=== PATIENT | female | born 1985 | race Caucasian/White ===

== ENCOUNTER 2021-09-30 11:20 | Outpatient (CLI) | payer OTHER, SELFPAY ==
--- NOTE | 2021-09-30 11:31 | ECG_ITS ---
Measurements Intervals [place] Rate: 72 P: 17 AL: 142 QRS: 0 QRSD: 93 T: 8 QT: 371 QTc: 408 Interpretive Statements SINUS RHYTHM DELAYED RS TRANSITION OTHERWISE WITHIN NORMAL LIMITS NO PREVIOUS ECG AVAILABLE FOR COMPARISON Electronically Signed On 09-30-2021 12:07:24 CDT by Cristopher Denis M.D.
[2021-09-30 12:08] LABS: Hematocrit 40.4 % (37.0-47.0); Hemoglobin 13.5 g/dL (12.0-15.0)
[2021-09-30 12:17] LABS: Anion Gap 11 mmol/L (8-16); Blood Urea Nitrogen 13 mg/dL (7-17); Calcium 9.2 mg/dL (8.4-10.2); Carbon Dioxide 25 mmol/L (22-30); Chloride 95 mmol/L (98-107); Estimated Glomerular Filt Rate > 60; Glucose 95 mg/dL (65-110); Potassium 4.5 mmol/L (3.4-5.0); Sodium 131 mmol/L (137-145)
== END 2021-09-30 11:21 | disposition home or self-care (01) ==
LOC: ANHSURGERY 11:25
PROVIDERS: Anesthesiology; Visit Provider Obstetrics & Gynecology Gynecology
DX: N83.8 Other noninflammatory disorders of ovary, fallopian tube and broad ligament (principal); I10 Essential (primary) hypertension; E88.81 Metabolic syndrome and other insulin resistance; Z01.818 Encounter for other preprocedural examination
CPT/HCPCS: 36415; 80048; 85014; 85018; 86850; 86900; 86901; 93005

== ENCOUNTER 2021-10-05 09:29 | Inpatient (IN) | payer OTHER, SELFPAY ==
[2021-09-29 14:26] VITALS: BMI 32.0
--- NOTE | 2021-09-29 14:41 | PC.NURSE ---
Report to the Outpatient Waiting Room, entrance under the green pavilion located off [facility], at 0600 on 10/05/2021 . OR Time: 0730. - You and your visitor will be asked to self-screen and do not enter if you have any COVID symptoms. - Only one visitor and NO children visitors are allowed at this time. - The patient visitor is requested to leave or wait in car when not with patient due to restrictions. - A mask is required within the hospital. Patients may have clear liquids (water, carbonated beverages, clear teas, apple juice) until 3 hours prior to surgery with a maximum of 20 ounces. - No food from midnight until time of surgery Take the following medications with a SIP of water the morning of surgery: METOPROLOL Medications to discontinue per physician VITAMINS/SUPPLEMENTS Date to take last dose 09/25/21 Please no make-up, nail singaporean, hairspray, perfume, deodorant, or body powder the day of surgery. No jewelry (including any body piercings) or valuables the day of surgery, leave them at home. Please take a shower or bath the night before, or the morning of, surgery with an antibacterial soap. Wear comfortable, loose fitting clothing. . - Jewelry must be removed prior to entering the operating room. Rings and piercings that are not removed may be cut off. - The hospital will not accept responsibility for valuables. - Please leave all valuables, including medications, at home the day of surgery. If you are going home after surgery, a licensed reefer truck driver must drive you home. - NO public transportation without another adult. - We recommend that an adult stay with you for 24 hours following discharge. - We also recommend that you do not drive, make important decision, drink alcoholic beverages, or take any drugs that were not prescribed by your health care provider for at least 24 hours after your discharge time. Follow any additional instructions given to you from your surgeon. If you or anyone in your household have experienced Covid symptoms in the past week, please notify your surgeon or the nurse liaison at the phone number below for possible testing. Telephone instructions given to patient and asked if any additional questions and then verbalized understanding. Patient advised to call surgeon office or pre surgery nurse liaison [phone] if any additional questions.
--- NOTE | 2021-10-04 13:58 | WPDANESEPPF ---
Anes - Initial Pre Proc Eval Procedure: Operation Date: 10/05/21 07:30 Proposed Procedures p Exploratory Laparotomy with Left Salpingo-Oophorectomy - Tahira Richardson MD Date/Time: 10/04/21 13:58 Surgeon: Tahira Richardson MD Pre Op Diagnosis: left ovarian mass Patient Data Age: 36 Gender: F Height: 1.75 m Weight: 98.43 kg Allergies Allergy/AdvReac Type Severity Reaction Status Date / Time No Known Allergies Allergy Unverified 09/29/21 14:13 Home Medications Medication Instructions Recorded Confirmed Type ergocalciferol (vitamin D2) 1,250 50,000 unit PO 2XW 09/29/21 09/29/21 History mcg (50,000 unit) capsule (Vitamin D2) hydrocodone 5 mg-acetaminophen 325 1 tablet PO Q4-6H PRN PAIN 09/29/21 09/29/21 History mg tablet hydroxychloroquine 200 mg tablet 200 mg PO DAILY 09/29/21 09/29/21 History lisinopril 10 mg tablet 10 mg PO DAILY 09/29/21 09/29/21 History magnesium 250 mg tablet 250 mg PO DAILY 09/29/21 09/29/21 History metformin 500 mg tablet,extended 1,000 mg PO BID 09/29/21 09/29/21 History release 24 hr metoprolol tartrate 50 mg tablet 75 mg PO BID 09/29/21 09/29/21 History omega-3 fatty acids 1,000 mg PO DAILY 09/29/21 09/29/21 History ondansetron HCl 8 mg tablet 8 mg PO Q8-10H PRN Nausea 09/29/21 09/29/21 History paroxetine HCl 20 mg tablet 20 mg PO HS 09/29/21 09/29/21 History Patient hx anesthesia problems: none Family hx anesthesia problems: none Results Review: All pre-operative results and documents have been reviewed as part of the pre-operative evaluation. [facility] Past Medical History Medical History (Updated 10/04/21 @ 13:59 by Stevo Oakley DO) Anxiety Hypertension JUNITO (obstructive sleep apnea) Pleurisy Surgical History Surgical History (Updated 10/04/21 @ 13:59 by Stevo Oakley DO) History of appendectomy History of cholecystectomy Social History Social History Smoking packs per day: 0.25 Smoking cigarettes per day: 5.0 Years smoked: 21 Smoking pack-years: 5.25 Smoking status: Current every day smoker Tobacco type: cigarettes Alcohol intake: current Drinks per week: 4 Substance use: never Living arrangements: with family Spiritual care concerns: No Anes - Eval Final PreProcedure Day of Procedure 10/04/21 13:58 Patient weight: obese Heart: regular rate and rhythm Lungs: clear to auscultation Airway: Mallampati scale class II Neurological: alert and oriented Last oral intake: >/= 8 hours ASA classification: III Emergent: no Anesthetic plan: proceed Anesthesia type and monitoring: general ETT and standard monitoring Results Review: All pre-operative results and documents have been reviewed as part of the pre-operative evaluation. Informed Consent: The patient's anesthetic plan and its attendant risks and benefits were discussed with the patient/family/POA. Questions were solicited and answers provided to the satisfaction of the patient/family/POA.
[2021-10-05] VITALS (12 sets, daily range): BP systolic 101–141; BP diastolic 65–91; PULSE 52–66; RESP 12–20; TEMP 36.5–36.9; O2SAT 95–99
[2021-10-05] MEDS: ACETAMINOPHEN 500 MG TABLET 1000 MG PO (06:32)
[2021-10-05] MEDS: KETOROLAC 15 MG/ML VIAL (*BKC) IV PUSH (06:34)
[2021-10-05] MEDS: LACTATED RINGERS 1,000 ML 30 ML IV CONT ×2 (06:43→08:14)
[2021-10-05 06:50] LABS: Glucose Point of Care 92 mg/dl (65-105)
[2021-10-05 07:06] LABS: Sodium 138 mmol/L (137-145)
--- NOTE | 2021-10-05 07:13 | WPDHPUPDATE1 ---
History and Physical Update Update Date/Time: 10/05/21 07:13 History and Physical has been reviewed, including an updated exam of the patient. There are NO changes in the patient's condition. Risks, benefits, and alternatives have been discussed and questions answered. Patient agrees to proceed with procedure.
--- NOTE | 2021-10-05 07:13 | PM.IMHP ---
H&P: HPI History of Present Illness Date/Time: 10/05/21 07:13 Chief Complaint: Left ovarian cyst Narrative: The patient is a 36-year-old with a large left ovarian cyst measuring [id number] by MRI. There are thin septations by ultrasound the measurements are [id number]. The remainder of the pelvis appears normal by MRI and ultrasound. As recommended to proceed with lab work for tumor markers. CEA,CA 19-9, and CA-125 are all normal. It was then recommended to proceed with surgical excision via exploratory laparotomy due to the size. Patient was informed of the risks including infection, bleeding, injury to internal organs (especially bowel, bladder, ureters, uterus), DVT, and general anesthesia. Possible pathology was also discussed. Although findings to this point appear to show the mass to be benign final pathology may show cancer. Patient was offered referral to cabana attendant oncologist and she declined. We will therefore be proceeding with exploratory laparotomy and left salpingo-oophorectomy. Patient's questions were answered and she wishes to proceed. Review of Systems Review of Systems: Main complaint is pelvic pressure Genitourinary: Genitourinary: Reports nocturia and Reports other PMFSH Past Medical History Medical History (Updated 10/05/21 @ 07:20 by Tahira Richardson MD) Anxiety Hypertension JUNITO (obstructive sleep apnea) PCOS (polycystic ovarian syndrome) Surgical History Surgical History (Updated 10/05/21 @ 07:18 by Tahira Richardson MD) History of appendectomy History of cholecystectomy History of excision of pilonidal cyst Social History Social History Smoking packs per day: 0.25 Smoking cigarettes per day: 5.0 Years smoked: 21 Smoking pack-years: 5.25 Smoking status: Current every day smoker Tobacco type: cigarettes Alcohol intake: current Drinks per week: 4 Substance use: never Living arrangements: with family Spiritual care concerns: No Meds Home Medications and Allergies Home Medications Medication Instructions Recorded Confirmed Type ergocalciferol (vitamin D2) 1,250 50,000 unit PO 2XW 09/29/21 09/29/21 History mcg (50,000 unit) capsule (Vitamin D2) hydrocodone 5 mg-acetaminophen 325 1 tablet PO Q4-6H PRN PAIN 09/29/21 09/29/21 History mg tablet hydroxychloroquine 200 mg tablet 200 mg PO DAILY 09/29/21 09/29/21 History lisinopril 10 mg tablet 10 mg PO DAILY 09/29/21 09/29/21 History magnesium 250 mg tablet 250 mg PO DAILY 09/29/21 09/29/21 History metformin 500 mg tablet,extended 1,000 mg PO BID 09/29/21 09/29/21 History release 24 hr metoprolol tartrate 50 mg tablet 75 mg PO BID 09/29/21 09/29/21 History omega-3 fatty acids 1,000 mg PO DAILY 09/29/21 09/29/21 History ondansetron HCl 8 mg tablet 8 mg PO Q8-10H PRN Nausea 09/29/21 09/29/21 History paroxetine HCl 20 mg tablet 20 mg PO HS 09/29/21 09/29/21 History Allergies Allergy/AdvReac Type Severity Reaction Status Date / Time No Known Allergies Allergy Unverified 09/29/21 14:13 Exam Const: General: healthy appearing and alert Orientation/consciousness: patient oriented x3 GI: GI Palp: Yes Soft to palpation, No Tenderness to palpation present (GI) and Yes Palpable mass present (Left Lower abdomen past the midline) : External Female Exam: normal external appearance Speculum Exam - Vagina: normal appearance of the vagina and normal vaginal discharge Speculum Exam - Cervix: normal appearance of the cervix Bimanual exam- vagina & uterus: uterine size normal and consistency normal Bimanual Exam- Adnexa, other: Adnexal mass present on the left mobile, cul-de-sac fullness and other Neuro: General: patient oriented x3 H&P: Results Labs Labs: [facility] 10/05/21 06:31 Sodium 138 Assessment and Plan Assessment and plan (1) Left ovarian cyst: Code(s): N83.202 - Unspecified ovarian cyst, left side Status: Acute Plan Plan to proceed with exploratory l
[2021-10-05] MEDS: ceFAZolin 2 GM/D5W 50 ML 2 GM/50 ML BAG IVPB (07:26)
--- NOTE | 2021-10-05 08:08 | W.PM.PROC2 ---
Procedure Note - Detailed Date of Procedure 10/05/21 Pre-op Diagnosis left ovarian mass Post-op Diagnosis Same Procedure Performed Exploratory laparotomy with left salpingo-oophorectomy Surgeon Tahira Richardson MD Anesthesia General Findings Left ovarian cyst to the umbilicus. Right ovary with a simple cyst. Appearing tubes and uterus. Smooth peritoneum with no abnormalities. Filmy adhesions to the left ovarian cyst Description of Procedure The patient was taken to the operating room and placed under general anesthesia in the dorsal supine position. She was prepped and draped in the usual sterile fashion. A vertical skin incision was made with a scalpel and carried down to the underlying layer of fascia. Fascia was nicked in the midline and extended superiorly and inferiorly. Ochsner were used to tent the fascia and the peritoneum was dissected off laterally. The peritoneum was tented and entered with Metzenbaum scissors. The incision was extended with blunt traction. Pelvic washings are taken. The pelvis is explored with the above-stated findings. The mass is delivered through the incision. Filmy adhesions to the underlying bowel near the hilum of the ovary are taken down using Bovie cautery. The infundibulopelvic ligament is doubly clamped, transected, and suture ligated with 0 Vicryl. The mass is sent for pathology. Good hemostasis is noted. The right ovarian simple cyst is cauterized and drained. Clear straw fluid is noted. Good hemostasis is noted. All instruments are removed and the fascia closed using 0 PDS. The subcutaneous tissues are irrigated and made hemostatic using Bovie cautery. Skin is closed using mike. Sterile bandage was applied. Sponge, needle, and instrument counts are correct per the OR staff. Patient is awakened from anesthesia and taken to recovery in stable condition. Estimated Blood Loss 5 Drains Yes (Quintana catheter) Packing No Pathology Yes (Pelvic washings; left tube and ovary) Complications No immediate complications Condition Stable Disposition PACU
[2021-10-05 08:25] LABS: Glucose Point of Care 139 mg/dl (65-105)
[2021-10-05] MEDS: fentaNYL CITRATE INJ (*CRX) 100 MCG/2 ML VIAL 25 MCG IV PUSH ×8 (08:27→09:23)
[2021-10-05] MEDS: DEXTROSE 5%/0.45% SOD CHL 1,000 ML 125 ML IV CONT (10:01)
[2021-10-05] MEDS: HYDROcodone/acetaminophen (*CRX) 10-325 MG TABLET 1 TAB PO ×4 (10:04→19:09)
[2021-10-05] MEDS: HYDROXYCHLOROQUINE SULFATE 200 MG TABLET PO (10:06)
[2021-10-05] MEDS: SIMETHICONE 80 MG TAB.CHEW PO ×3 (10:08→21:42)
--- NOTE | 2021-10-05 11:03 | OBPPTRN ---
0935 Patient transferred to post room #190 via bed. Support person present. Oriented to unit, room, information board, admission packet and security measures. Patient verbalizes understanding.
[2021-10-05] MEDS: KETOROLAC 30 MG/ML VIAL (*BKC) IV PUSH ×2 (12:58→19:10)
[2021-10-05] MEDS: PARoxetine 20 MG TABLET PO (21:49)
[2021-10-06] VITALS: BP 116/63; PULSE 60; RESP 18; TEMP 36.8
[2021-10-06] MEDS: SIMETHICONE 80 MG TAB.CHEW PO ×3 (00:33→08:44)
[2021-10-06] MEDS: HYDROcodone/acetaminophen (*CRX) 10-325 MG TABLET 1 TAB PO ×3 (00:34→08:44)
[2021-10-06] MEDS: IBUPROFEN 600 MG TABLET PO (00:34)
[2021-10-06 05:00] VITALS: BP 124/76; PULSE 66; RESP 18; TEMP 36.7
--- NOTE | 2021-10-06 07:49 | PM.GYNPNOP ---
HEEL GUMMER - A/P Postoperative Procedures: Procedures Operation Date: 10/05/21 07:30 Actual Procedure Side Surgeon p Exploratory Laparotomy with Left Salpingo-Oophorectomy Left Tahira Richardson MD Postoperative day: 1 Postoperative status: doing well Postoperative plan: routine post-op care and discharge Time Spent With Patient Time: Total time spent is greater than 50% in coordination of care (as documented) at patient's floor/unit and/or counseling patient: Time with patient: less than 15 minutes HEEL GUMMER- PN:Subj Post-Op Subjective Date/time seen: 10/06/21 07:49 Subjective: patient has no complaints and pain is well controlled Exam Narrative: inc c/d/i abdomen soft, nt HEEL GUMMER - PN: Obj Data Vital Signs Vital Signs: Vital Signs - 24 hr 10/05/21 08:14 10/05/21 08:25 10/05/21 08:40 Temperature 97.7 F Pulse Rate 54 L 56 L 52 L Respiratory Rate 20 12 16 Blood Pressure 131/73 132/89 131/80 Pulse Oximetry 96 96 95 Oxygen Delivery Room Air Room Air Room Air 10/05/21 08:55 10/05/21 09:10 10/05/21 09:25 Temperature Pulse Rate 53 L 54 L 63 Respiratory Rate 16 14 18 Blood Pressure 133/74 124/91 H 141/82 H Pulse Oximetry 96 97 97 Oxygen Delivery Room Air Room Air Room Air 10/05/21 09:35 10/05/21 09:35 10/05/21 12:21 Temperature 98.1 F 98.3 F Pulse Rate 54 L 52 L Respiratory Rate 16 18 Blood Pressure 127/83 135/71 Pulse Oximetry 98 99 Oxygen Delivery Room Air 10/05/21 12:58 10/05/21 17:00 10/05/21 17:00 Temperature 97.8 F Pulse Rate 52 L Respiratory Rate 16 Blood Pressure 123/66 Pulse Oximetry 99 Oxygen Delivery Room Air Room Air 10/05/21 19:00 10/05/21 19:00 10/06/21 00:00 Temperature 98.4 F 98.2 F Pulse Rate 66 60 Respiratory Rate 18 18 Blood Pressure 101/68 116/63 Pulse Oximetry Oxygen Delivery Room Air 10/05/21 21:00 10/06/21 00:00 10/06/21 05:00 Temperature 98.1 F Pulse Rate 66 66 Respiratory Rate 18 Blood Pressure 107/65 124/76 Pulse Oximetry Oxygen Delivery Room Air 10/06/21 05:00 Temperature Pulse Rate Respiratory Rate Blood Pressure Pulse Oximetry Oxygen Delivery Room Air Intake/Output Intake/Output: Intake & Output 10/03/21 10/04/21 10/05/21 10/06/21 23:59 23:59 23:59 23:59 Intake Total 3830 1980 Output Total 1800 2900 Balance 2030 -920 Meds/Results Medications: Active Medications Generic Name Dose Route Start Last Admin Trade Name Freq PRN Reason Stop Dose Admin Hydrocodone Bitart/Acetaminophen 1 tab 10/05/21 09:29 10/06/21 04:55 Hydrocodone/Acetaminophen (*Crx) 10-325 Mg Tablet PO 1 tab Q3H PRN Administration Pain Rated 6 or Greater Hydrocodone Bitart/Acetaminophen 1 tab 10/05/21 09:29 Hydrocodone/Acetaminophen (*Crx) 5-325 Mg Tablet PO Q3H PRN Pain Rated 5 or Less Hydroxychloroquine Sulfate 200 mg 10/05/21 09:29 10/05/21 10:06 Hydroxychloroquine Sulfate 200 Mg Tablet PO 200 mg DAILY BAUTISTA Administration Ibuprofen 600 mg 10/05/21 09:29 10/06/21 00:34 Ibuprofen 600 Mg Tablet PO 600 mg Q6H PRN Administration Cramping Ketorolac Tromethamine 30 mg 10/05/21 09:29 10/05/21 19:10 Ketorolac 30 Mg/Ml Vial (*Bkc) IV PUSH 10/10/21 09:28 30 mg Q6H PRN Administration Pain Rated 4-6 Lisinopril 10 mg 10/05/21 21:00 10/06/21 00:35 Lisinopril 10 Mg Tablet PO Not Given HS BAUTISTA Metformin HCl 1,000 mg 10/05/21 09:29 10/05/21 22:01 Metformin Hcl Xr 500 Mg Tab.Sr.24h PO Not Given BID BAUTISTA Metoprolol Tartrate 75 mg 10/05/21 09:29 10/06/21 00:35 Metoprolol Tartrate 25 Mg Tablet PO Not Given Q12HR BAUTISTA Ondansetron HCl 8 mg 10/05/21 09:29 Ondansetron Hcl Odt 4 Mg Tablet PO Q8H PRN Nausea Ondansetron HCl 4 mg 10/05/21 09:29 Ondansetron Inj 4 Mg/2 Ml Vial IV PUSH Q6H PRN Nausea Paroxetine HCl 20 mg 10/05/21 21:00 10/05/21 21:49 Paroxetine 20 Mg Tablet PO 20 mg
--- NOTE | 2021-10-06 07:50 | PM.DS ---
DS: Admitting Diagnosis Discharge Date 10/06/21 Admitting Diagnosis left ovarian cyst DS: Discharge Diagnosis Discharge Diagnosis (1) History of left salpingo-oophorectomy: Code(s): Z90.79 - Acquired absence of other genital organ(s); Z90.721 - Acquired absence of ovaries, unilateral Status: Acute DS: Summary Hospital Course Reason for hospitalization: post op care Hospital Course: Patient voiding, ambulating, and tolerating diet. Status at Discharge Functional status at discharge: independent ambulation Overall status at discharge: patient is progressing back to baseline Time Spent with Patient Time attestation: Total time spent providing and/or coordinating discharge services: DS: Data Data Completed and Pending Pending studies at discharge: Pending at discharge 10/05/21 08:09 Surgical [PTH] Routine Labs on day of discharge: Labs from last 24 hours 10/05/21 08:23 POC Capillary Glucose 139 H Discharge Plan Discharge Attending physician on discharge: Tahira Richardson Discharging Clinician: Tahira Richardson Anticipated Discharge Date/Time: 10/06/21 07:51 Patient Disposition: Home, Self-Care Activity: may shower, may drive after 2 weeks and pelvic rest Diet: regular Wound Care Instructions: incision open to air Patient Instructions: Antibiotic Form Stand Alone Forms: General Discharge Information Follow-up/Referrals: Tahira Richardson MD [Physician] - (10 days) Discharge Medications: Continued ondansetron HCl 8 mg tablet 8 mg PO Q8-10H PRN (Reason: Nausea) paroxetine HCl 20 mg tablet 20 mg PO HS lisinopril 10 mg tablet 10 mg PO DAILY metoprolol tartrate 50 mg tablet 75 mg PO BID magnesium 250 mg Tablet 250 mg PO DAILY ergocalciferol (vitamin D2) [Vitamin D2] 1,250 mcg (50,000 unit) capsule 50,000 unit PO 2XW hydroxychloroquine 200 mg tablet 200 mg PO DAILY metformin 500 mg tablet extended release 24 hr 1,000 mg PO BID Fish Oil Capsule 1,000 mg PO DAILY hydrocodone-acetaminophen 5-325 mg tablet 1 tablet PO Q4-6H PRN (Reason: PAIN) Qty: 20 0RF Date of admission: 10/05/21 09:29 Primary Care Provider: PHYSICIAN NOT ON STAFF,NONSTAFF Admitting Provider: Tahira Richardson Attending physician on admission: Tahira Richardson Condition: Stable
[2021-10-06 08:10] VITALS: BP 117/70; PULSE 61; RESP 16; TEMP 36.4; O2SAT 100
--- NOTE | 2021-10-06 10:38 | PC.NURSE ---
Patient's discharge paperwork completed, staple removal kit given. pt requested an abdominal binder, advised pt to call Dr. Richardson's office before using the binder. Pt agreed.
== END 2021-10-06 10:40 | disposition home or self-care (01) | DRG 743 ==
LOC: ANHOB2 09:31
PROVIDERS: Anesthesiology; Admitting Provider Obstetrics & Gynecology Gynecology; Visit Provider Obstetrics & Gynecology Gynecology
PROC: 0UT94ZZ Resection of Uterus, Percutaneous Endoscopic Approach (ICD-10-PCS; principal; 2021-10-05 07:30)
DX: N83.202 Unspecified ovarian cyst, left side (principal); F17.210 Nicotine dependence, cigarettes, uncomplicated; F41.9 Anxiety disorder, unspecified; G47.33 Obstructive sleep apnea (adult) (pediatric); I10 Essential (primary) hypertension; Z90.49 Acquired absence of other specified parts of digestive tract
CPT/HCPCS: 36415; 82948; 84295; 88108; 88305; A9270; J0690; J1100; J1170; J1885; J2250; J2405; J2704; J3010; J7120

== ENCOUNTER 2021-10-20 16:53 | Emergency (ER) | payer OTHER, SELFPAY ==
--- NOTE | ~2021-10-20 | CT_ITS ---
EXAMINATION: CT abdomen pelvis w con DATE: 10/20/2021 17:49 INDICATION: Lower abdominal pain post recent surgery. TECHNIQUE: Computed tomography (CT) of the abdomen and pelvis was performed with 100 mL Omnipaque-350 intravenous contrast. Automated exposure control and iterative reconstruction technique were employe d. The dose-length product was 965.80 mGy-cm. COMPARISON: None FINDINGS: Lung bases are clear. Heart size is normal. No pericardial or pleural effusion. Cholecystectomy clips at the gallbladder fossa. Liver, pancreas, bilateral adrenal glands and kidneys are normal. Multiple splenic calcifications consistent with old granulomatous disease. Bowels are normal. The appendix is not visualized. No pericecal inflammatory change to suggest acute appendicitis. Bladder, anteverted uterus and right adnexa are unremarkable. Left ovary is not visualized. Tiny fat-containing umbilical hernia. Infraumbilical midline surgical wound. No abscess. No free intraperitoneal gas or fluid. No pathologically enlarged abdominal or pelvic lymphadenopathy. Mild thoracolumbar dextrocurvature. Mode rate thoracic spondylosis. IMPRESSION: 1. Expected appearance of a recent midline surgical wound. No abscess or other acute intra-abdominal/ pelvic process. Reviewed, dictated and finalized at location A. IMPRESSION: 1. Expected appearance of a recent midline surgical wound. No abscess or other acute intra-abdominal/pelvic process.
[2021-10-20 17:15] VITALS: BP 134/75; PULSE 71; RESP 18; TEMP 36.7; O2SAT 100
--- NOTE | 2021-10-20 17:24 | ED.ABDPAIN ---
HPI - Abdominal Pain General Chief Complaint: Abdominal Pain Stated Complaint: post op abd pain Time Seen by Provider: 10/20/21 17:11 Source: patient Mode of arrival: ambulatory Limitations: no limitations History of Present Illness HPI narrative: Patient is a 36-year-old female who presents to the ED with report of mid lower abdominal pain. Patient reports she had an exploratory laparotomy, left ovarian cystectomy, left salpingo-oophorectomy performed by Dr. Richardson on 10/05. She had the mike removed 6 days later, part of her wound did dehisce which was treated with Steri-Strips. She reports over last 24 hours she has had increasing pain under the lower part of her incision, under the area of dehiscence. She states her skin feels firm in this region. She has been taking ibuprofen 800 mg every 8 hours with minimal relief. She denies any fever, nausea, vomiting, chills, diarrhea, constipation, urinary symptoms, drainage from wound. Related Data Home Medications Medication Instructions Recorded Confirmed ergocalciferol (vitamin D2) 1,250 50,000 unit PO 2XW 09/29/21 09/29/21 mcg (50,000 unit) capsule (Vitamin D2) hydroxychloroquine 200 mg tablet 200 mg PO DAILY 09/29/21 09/29/21 lisinopril 10 mg tablet 10 mg PO DAILY 09/29/21 09/29/21 magnesium 250 mg tablet 250 mg PO DAILY 09/29/21 09/29/21 metformin 500 mg tablet,extended 1,000 mg PO BID 09/29/21 09/29/21 release 24 hr metoprolol tartrate 50 mg tablet 75 mg PO BID 09/29/21 10/05/21 omega-3 fatty acids 1,000 mg PO DAILY 09/29/21 09/29/21 ondansetron HCl 8 mg tablet 8 mg PO Q8-10H PRN Nausea 09/29/21 09/29/21 paroxetine HCl 20 mg tablet 20 mg PO HS 09/29/21 09/29/21 Allergies Allergy/AdvReac Type Severity Reaction Status Date / Time No Known Allergies Allergy Verified 10/20/21 17:22 Review of Systems Review of Systems: CONSTITUTIONAL: Denies fever, chills, or sweats. CARDIOVASCULAR: Denies chest pain. RESPIRATORY: Denies dyspnea. GASTROINTESTINAL: Reports mid lower ABD pain. Denies nausea, vomiting, constipation, or diarrhea. GENITOURINARY: Denies dysuria or hematuria. SKIN: Denies drainage from wound, rash or itching. All systems reviewed & are unremarkable except as noted in HPI and below PMFSH Past Medical History Medical History (Updated 10/20/21 @ 18:53 by Nicolette Chavez PA-C) Anxiety Hypertension Left ovarian cyst JUNITO (obstructive sleep apnea) PCOS (polycystic ovarian syndrome) Surgical History Surgical History (Updated 10/20/21 @ 17:24 by Nicolette Chavez PA-C) History of appendectomy History of cholecystectomy History of excision of pilonidal cyst History of left salpingo-oophorectomy Social History Social History Smoking packs per day: 0.25 Smoking cigarettes per day: 5.0 Years smoked: 21 Smoking pack-years: 5.25 Smoking status: Current every day smoker Tobacco type: cigarettes Alcohol intake: current Drinks per week: 4 Substance use: never Spiritual care concerns: No Exam Narrative: GENERAL: Well appearing, obese, non-toxic, in no acute distress. HEAD: Normocephalic, atraumatic. NECK: Supple. No adenopathy, no masses. RESPIRATORY: Airway patent, respirations nonlabored. Clear to auscultation bilaterally, no rales, rhonchi, wheezing. CARDIOVASCULAR: Regular rate and rhythm without murmurs, rubs, or gallops. Peripheral pulses 2+ and equal bilaterally. ABDOMINAL: Soft, tenderness to lower midline abdomen, below umbilicus, below region of inferior abdominal incision. Nondistended, no hepatosplenomegaly. Normoactive BS. MUSCULOSKELETAL: Moves all extremities. Strength/ROM intact without gross deformities. SKIN: Warm, dry, normal color. No rashes. Midline abdominal incision from just below umbilicus to above pubic bone, small area of dehiscence to inferior incision with Steri-Strips in place. No active drainage. No surrounding warmth or erythema.
[2021-10-20 17:25] LABS: Appearance Urine Clear (Clear); Basophils Absolute Auto 0.1 K/mm3 (0.0-0.1); Basophils Percent Auto 0.9 % (0.2-1.2); Bilirubin Urine Negative (Negative); Blood Urine 1+ (Negative); Color Urine Yellow (Yellow); Eosinophils Absolute Auto 0.3 K/mm3 (0-0.3); Eosinophils Percent Auto 2.2 % (0-4.4); Glucose Urine UA Negative (Negative); Hematocrit 38.1 % (37.0-47.0); Hemoglobin 12.6 g/dL (12.0-15.0); Immature Granulocyte Absolute 0.04 K/mm3 (0.00-0.031); Immature Granulocyte Percent A 0.3 % (0-0.5); Ketones Urine Negative (Negative); Leukocyte Esterase Ur Trace LEU/UL (Negative); Lymphocytes Absolute Auto 3.69 K/mm3 (0.9-3.2); Lymphocytes Percent Auto 28.7 % (18.3-44.2); Mean Corpuscular HGB Conc 33.1 g/dl (32-36); Mean Corpuscular Hemoglobin 28.3 pg (26-34); Mean Corpuscular Volume 85.4 fl (80-100); Monocytes Absolute Auto 1.1 K/mm3 (0.1-0.6); Monocytes Percent Auto 8.9 % (2.6-8.5); Neutrophils Absolute Auto 7.6 K/mm3 (1.3-6.7); Nitrate Urine Negative (Negative); Platelet Count Result 373 k/mm3 (150-375); Protein Urine Negative (Negative); Red Blood Count 4.46 M/mm3 (4.2-5.4); Red Cell Distribution Width 13.2 % (11.5-14.5); Specific Grav Ur 1.015 (1.001-1.035); Urobilinogen Urine 0.2 mg/dL (<2.0); White Blood Count 12.8 K/mm3 (4.5-10.0); pH Urine 7.5 (5.0-9.0)
[2021-10-20 17:29] LABS: Add Urine Microscopic? YES; Bacteria Urine Trace /hpf; Mucus Urine Rare /lpf; RBC Urine 0-2 /hpf (0-2); Squamous Epithelial Cell Urine Occasional /hpf (Few); WBC Urine 0-3 /hpf
[2021-10-20 17:35] LABS: Alanine Aminotransferase 20 U/L (6-35); Albumin Level 4.6 g/dL (3.5-5.1); Alkaline Phosphatase 84 U/L (38-126); Anion Gap 14 mmol/L (8-16); Aspartate Amino Transferase 24 U/L (14-36); Bilirubin,Total 0.4 mg/dL (0.2-1.3); Blood Urea Nitrogen 11 mg/dL (7-17); Carbon Dioxide 28 mmol/L (22-30); Chloride 100 mmol/L (98-107); Estimated Glomerular Filt Rate > 60; Glucose 85 mg/dL (65-110); Lipase 96 U/L (23-300); Potassium 4.2 mmol/L (3.4-5.0); Sodium 142 mmol/L (137-145)
[2021-10-20 18:13] VITALS: BP 122/70; PULSE 68; RESP 12; O2SAT 100
[2021-10-20] MEDS: ONDANSETRON INJ 4 MG/2 ML VIAL IV PUSH (18:28)
[2021-10-20 19:03] VITALS: BP 122/70; PULSE 63; RESP 14; TEMP 36.7; O2SAT 99
== END 2021-10-20 19:04 | disposition home or self-care (01) ==
PROVIDERS: Emergency Provider Emergency Medicine
DX: G89.18 Other acute postprocedural pain (principal); R10.30 Lower abdominal pain, unspecified; I10 Essential (primary) hypertension; G47.33 Obstructive sleep apnea (adult) (pediatric); E28.2 Polycystic ovarian syndrome; F41.9 Anxiety disorder, unspecified; F17.210 Nicotine dependence, cigarettes, uncomplicated; Z79.84 Long term (current) use of oral hypoglycemic drugs
CPT/HCPCS: 36415; 74177; 80053; 81001; 81025; 83690; 85025; 96365; 96375; 99283; J0131; J2405; Q9967